=== PATIENT | female | born 1985 | race Native Hawaiian/Other Pacific Islander ===

== ENCOUNTER 2022-02-20 18:50 | Emergency (ER) | payer OTHER ==
[~2022-02-20] VITALS: Ht 170.2 cm; Wt 85.7 kg
[2022-02-20 19:58] LABS: PLATELET COUNT 233 K/uL (152-353)
[2022-02-20 20:40] VITALS: BP 109/74; TEMP 98.1
== END 2022-02-20 20:40 | disposition home or self-care (01) ==
LOC: ED 18:50
PROVIDERS: Emergency Medicine
DX: R07.89 Other chest pain (principal); R53.83 Other fatigue
CPT/HCPCS: 36415; 80053; 82550; 84443; 84484; 85027; 93005; 99283